=== PATIENT | female | born 1955 | race Caucasian/White ===

== ENCOUNTER 2017-12-08 09:18 | Outpatient (CLI) | payer MEDICARE, MEDICAID ==
--- NOTE | 2017-12-08 11:22 | Fluoroscopy Report ---
Modified barium swallow: Imaging is obtained in the lateral projection. Different consistencies of opaque material given to the patient by speech therapy. No significant penetration and no aspiration identified.
== END 2017-12-08 09:19 | disposition home or self-care (01) ==
LOC: PT 09:18
PROVIDERS: ATTEND Internal Medicine
DX: R13.12 Dysphagia, oropharyngeal phase (principal); G80.9 Cerebral palsy, unspecified; F41.9 Anxiety disorder, unspecified; F20.9 Schizophrenia, unspecified; Z87.01 Personal history of pneumonia (recurrent)
CPT/HCPCS: 74230; 92611; G8996; G8997; G8998

== ENCOUNTER 2017-12-11 05:33 | Inpatient (IN) | payer MEDICARE ==
--- NOTE | 2017-12-11 05:47 | Emergency Department Report ---
ED CPR HPI - General Stated Complaint: CARDIAC ARREST Time Seen by Provider: 12/11/17 05:42 Source: EMS Mode of arrival: Stretcher Limitations: Altered Mental Status - History of Present Illness Initial Comments: 62 yo female from [place] presents s/p cardiopulmonary arrest from [place]. Original call was for sob. Upon EMS arrival chest compressions were in progress. Pt intubated with 7.0 ET tube, pt had a narrow complex rhythm with signs of st elevation on rhythm strip. Weak pulse obtained prior to arrival with intermittent agonal respirations noted. glucose in the 240's. No IV access or IV meds prior to arrival. - Related Data Allergies Allergy/AdvReac Type Severity Reaction Status Date / Time grapefruit Allergy Unknown Verified 12/11/17 05:54 Influenza Virus Vaccines Allergy Unknown Verified 12/11/17 05:55 ED Review of Systems ROS: Stated complaint: CARDIAC ARREST Other details as noted in HPI Comment: Unobtainable due to pts medical conditions ED Physical Exam - General Limitations: Altered Mental Status, Physical Limitation General appearance: other (unresponsive) - Head Head exam: Present: normal inspection - Eye Eye exam: Present: other (pupils fixed and dialated) - ENT ENT exam: Present: other (orally intubated 7.0 ET tube 20 cm at lip) - Respiratory Respiratory exam: Present: other (apneic, intubated, equal breath sounds without breathsounds over the epigastrium) - Cardiovascular Cardiovascular Exam: Present: normal rhythm - GI/Abdominal GI/Abdominal exam: Present: soft, other (Peg tube noted). Absent: distended - Extremities Exam Extremities exam: Present: other (mottled, cyanotic, no spontaneous movement) - Back Exam Back exam: Present: normal inspection - Neurological Exam Neurological exam: Present: other (gcs = 3) - Psychiatric Psychiatric exam: Present: other (unresponive) - Skin Skin exam: Present: cyanosis ED Course - Reevaluation(s) Reevaluation #1: 12/11/17 06:12 Patient is the had a narrow complex rhythm. Patient's rhythm deteriorated to a bradycardic wide complex rhythm. Chest compressions initiated. During pulselessness patient went from PEA to V. tach. After multiple rounds of epi, sodium bicarbonate, and defibrillation a perfusing rhythm was obtained. See code sheet for details. 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 - Central Line Placement Right Femoral Consent Obtained: emergent situation Time Out Performed: Yes Patient Placed on Monitor/Pulse Ox: Yes Prep: mask, gown, gloves Central Line Prep: Chlorhexidine scrub, sterile drapes applied Ultrasound Used for Placement: No Bloods Obtained for Lab: Yes Central Line Position: good blood return, sutured in place with nyl Dressing Applied: Tegaderm Patient Tolerated Procedure: well Complications: none ED Medical Decision Making - EKG Data -: EKG Interpreted by Me EKG shows normal: sinus rhythm, axis (qrs 72), QRS complexes (98), ST-T waves ( large r wave with st depression v1-v4 suggestive post mi) Rate: tachycardia (113) - EKG Data When compared to previous EKG there are: previous EKG unavailable - Radiology Data Radiology results: report reviewed (cxr: pending) - Medical Decision Making Status post cardiac arrest with rearrest s/p arriival to the ED. Pulse obtained . Central line placed. Patient signed out to Dr. Ng with labs and chest x-ray pending. Patient would need ICU admission. - Differential Diagnosis PE, respiratory arrest, cardiac arrest, arrhythmia, ID, CVA Critical Care Time: Yes Critical care time in (mins) excluding proc time.: 30 Critical care attestation.: If time is entered above; I have spent that time in minutes in the direct care of this critically ill patient, excluding procedure time. ED Disposition Clinical Impression: Cardiopulmonary arrest Disposition: [id number] OP ADMIT IP TO THIS HOSP Is pt being admited?: Yes Condition: Stable Time of Disposition: 06:18 (s/o Dr Ng)
[2017-12-11] MEDS ORDERED: VASELINE LIP THERAPY TP PRN (06:09)
[2017-12-11] MEDS ORDERED: ARTIFICIAL TEARS OPHTH OINT OU PRN (06:09)
[2017-12-11] MEDS ORDERED: NACL 0.9% 1000 ML 1,000 ML IV ONE ×6 (06:14→11:47)
[2017-12-11] MEDS: LEVOPHED DRIP 4 MG/NS 250 ML 4 MG/250 ML BAG IV SCH ×3 (06:15→13:27)
[2017-12-11 06:27] LABS: Hematocrit 40.2 % (30.3-42.9); Hemoglobin 12.6 gm/dl (10.1-14.3); Mean Corpuscular HGB Conc 31 % (30-34); Mean Corpuscular Hemoglobin 31 pg (28-32); Mean Corpuscular Volume 99 fl (79-97); Platelet Count 104 K/mm3 (140-440); Red Blood Count 4.08 M/mm3 (3.65-5.03); Red Cell Distribution Width 16.4 % (13.2-15.2)
--- NOTE | 2017-12-11 06:36 | XRay Report ---
FINAL REPORT EXAM: XR CHEST 1V AP HISTORY: s/p cardiac arrest, ett placement TECHNIQUE: AP portable view(s) of the chest obtained. PRIORS: None. FINDINGS: Endotracheal tube terminates approximately 6 cm from the timbo. No mediastinal shift. Cardiac silhouette is not enlarged. No pneumothorax, effusion, or focal pulmonary opacity identified. No acute skeletal findings. IMPRESSION: Endotracheal tube terminates approximately 6 cm from the timbo. No pneumothorax or evident effusion.
[2017-12-11 06:39] LABS: INR 1.39 (0.87-1.13); Partial Thromboplastin Time 28.2 Sec. (24.2-36.6)
[2017-12-11 06:40] LABS: Calcium 6.6 mg/dL (8.4-10.2)
[2017-12-11 06:43] LABS: Alanine Aminotransferase 118 units/L (7-56); Albumin 1.3 g/dL (3.9-5)
[2017-12-11 06:44] LABS: Creatine Kinase MB 6.4 ng/mL (0.0-4.0)
[2017-12-11] MEDS ORDERED: D50W (25GM) Syringe IV ONE (06:46)
[2017-12-11] MEDS ORDERED: KIONEX PR ONE (06:46)
[2017-12-11] MEDS ORDERED: HumuLIN R IV ONE (06:46)
[2017-12-11] MEDS ORDERED: CALCIUM GLUCONATE 1,000 MG in NACL 0.9% 100 ML IV ONE (06:46)
[2017-12-11 06:47] LABS: Bilirubin,Direct < 0.2 mg/dL (0-0.2)
[2017-12-11] MEDS ORDERED: Vasostrict 20 UNIT in NACL 0.9% 100 ML IV SCH (07:00)
[2017-12-11] MEDS ORDERED: NACL 0.9% 500 ML IV SCH (07:00)
[2017-12-11] MEDS ORDERED: LEVAQUIN 750MG/150ML 750 MG/150 ML BAG IV ONE (08:08)
[2017-12-11] MEDS ORDERED: NEO-SYNEPHRINE 100 MG in NACL 0.9% 90 ML IV SCH (09:30)
--- NOTE | 2017-12-11 09:33 | Emergency Department Report ---
Blank Doc - Documentation Documentation: I was asked by my overnight colleague to follow the labs for this patient, take care of any abnormalities, and assist in getting the patient admitted to the critical care unit. The patient was found to have a 51,000 white blood cell count, hyperkalemia with potassium of 6, very elevated lactic acidosis, elevated LFTs and a troponin level that appears to be trending up along with the CK and CK-MB levels. Blood cultures sent and patient was started empirically on antibiotics. She was given some Kayexalate, insulin and glucose for the hyperkalemia. She has required a second pressor to be started and was given another IV fluid bolus. I put in a critical care consult for Dr. Langston and I spoke with Dr. Vigil about admission to the hospitalist service.
[2017-12-11] MEDS ORDERED: NACL 0.9% 1000 ML 2,000 ML IV ONE (09:44)
[2017-12-11] MEDS ORDERED: SODIUM BICARBONATE IV ONE ×2 (09:46→09:51)
[2017-12-11] MEDS ORDERED: VANCOMYCIN/NS 1 GM/250 ML 1 GM/250 ML BAG IV SCH ×2 (09:48→10:00)
[2017-12-11 09:50] LABS: Chol/HDL Ratio 10.1 %
[2017-12-11] MEDS ORDERED: ZOSYN/NS 3.375GM/50ML 3.375 GM/50 ML BAG IV SCH (10:00)
--- NOTE | 2017-12-11 10:00 | Consultation ---
History of Present Illness Consult date: 12/11/17 Requesting physician: BEBE PRINCE History of present illness: The pt is a 62 YO female half-way resident with a past medical history significant for cerebral palsy. She is previously unknown to our practice. Pt is intubated and nonresponsive on evaluation with no family at bedside and thus HPI is obtained per the chart and per primary RN. Pt presented from [place] s/p cardiopulmonary arrest from [place]. Original call was for SOB. Upon EMS arrival chest compressions were in progress. Pt intubated with 7.0 ET tube, pt had a narrow complex rhythm with signs of st elevation on rhythm strip. Weak pulse obtained prior to arrival with intermittent agonal respirations noted. Following arrival to ED, patient's rhythm deteriorated to a bradycardic wide complex rhythm. Chest compressions resumed. During pulselessness patient went from PEA to V. tach. After multiple rounds of epi, sodium bicarbonate, and defibrillation ROSC was obtained. Pt was initiated on levophed and vaso gtts. 12 -lead ECG shows ST with large r wave and st depression in v1-v4. Troponins 0.046 -> 0.027. WBC 51.1; lactic acid 16.8; Na 133; K+ 6.0; BUN/CR 83/2.3; BG 245; calcium 6.6. Past History Past Medical History: other (cerebral palsy ) Medications and Allergies Allergies Allergy/AdvReac Type Severity Reaction Status Date / Time grapefruit Allergy Unknown Verified 12/11/17 05:54 Influenza Virus Vaccines Allergy Unknown Verified 12/11/17 05:55 Home Medications Medication Instructions Recorded Confirmed Last Taken Type Acetaminophen [Tylenol] 650 mg PO Q6HR PRN 12/11/17 12/11/17 Unknown History Famotidine [Heartburn Prevention] 20 mg PO DAILY 12/11/17 12/11/17 Unknown History Trazodone HCl 150 mg PO QHS 12/11/17 12/11/17 Unknown History risperiDONE [RisperDAL] 0.25 mg PO BID 12/11/17 12/11/17 Unknown History Active Meds: Active Medications Hydrophilic Ointment (Vaseline Lip Therapy) 1 applic TP Q2HR PRN PRN Reason: Dry Lips Norepinephrine (Levophed Drip 4 Mg/Ns 250 Ml) 4 mg in 250 mls @ 7.5 mls/hr IV TITR JOVANI; Protocol Last Admin: 12/11/17 08:20 Dose: 30 mcg/min, 112.5 mls/hr Vasopressin 20 unit/ Sodium (Chloride) 101 mls @ 9.09 mls/hr IV TITR JOVANI; Protocol Last Admin: 12/11/17 07:29 Dose: 0.03 units/min, 9.09 mls/hr Phenylephrine HCl 100 mg/ (Sodium Chloride) 100 mls @ 3 mls/hr IV TITR JOVANI; Protocol Sodium Chloride (Nacl 0.9% 1000 Ml) 2,000 mls @ 999 mls/hr IV ONCE ONE Stop: 12/11/17 11:44 Piperacillin Sod/Tazobactam Sod (Zosyn/Ns 3.375gm/50ml) 3.375 gm in 50 mls @ 100 mls/hr IV Q8HR JOVANI Vancomycin HCl (Vancomycin/Ns 1 Gm/250 Ml) 1 gm in 250 mls @ 167.007 mls/hr IV ONCE JOVANI Multi-Ingred Cream/Lotion/Oil/Oint (Artificial Tears Ophth Oint) 1 applic OU Q4HR PRN PRN Reason: Dry Eye(s) Sodium Bicarbonate (Sodium Bicarbonate) 100 meq IV ONCE ONE Stop: 12/11/17 09:47 Sodium Chloride (Nacl 0.9% 500 Ml) 1 ml IV DIRECT JOVANI Review of Systems ROS unobtainable: due to endotracheal tube, due to mental status Physical Examination Vital Signs Pulse Resp 69 12 12/11/17 05:24 12/11/17 05:24 General appearance: other (intubated; unresponsive) Cardiac: Positive: Reg Rate and Rhythm, S1/S2 Lungs: Positive: Decreased Breath Sounds Neuro: Positive: Other (intubated; unresponsive) Skin: Negative: Rash, Wound Musculoskeletal: No Fluid Collection Extremities: Absent: edema Results 12/11/17 Unknown 12/11/17 Unknown Cardiac Enzymes 12/11/17 12/11/17 12/11/17 Range/Units 08:56 Unknown Unknown AST 180 H (5-40) units/L CK-MB (CK-2) 52.0 H 6.4 H (0.0-4.0) ng/mL Coagulation 12/11/17 Range/Units Unknown PT 17.9 H (12.2-14.9) Sec. INR 1.39 H (0.87-1.13) APTT 28.2 (24.2-36.6) Sec. Lipids 12/11/17 Range/Units 08:56 Triglycerides 224 H (2-149) mg/dL Cholesterol 101 (50-199) mg/dL HDL Cholesterol 10 L (40-59) mg/dL Cholesterol/HDL Ratio 10.10 % CBC 12/11/17 Range/Units Unknown WBC 51.1 H* (4.5-11.0) K/mm3 RBC 4.08 (3.65-5.03) M/mm3 Hgb 12.6 (10.1-14.3) gm/dl Hct 40.2 (30.3-42.9) % Plt Count 104 L (140-440) K/mm3 Comprehensive Metabolic Panel 12/11/17 12/11/17 Range/Units Unknown Unknown Sodium 133 L (137-145) mmol/L Potassium 6.0 H (3.6-5.0) mmol/L Chloride 89.0 L (98-107) mmol/L Carbon Dioxide 13 L (22-30) mmol/L BUN 83 H (7-17) mg/dL Creatinine 2.3 H (0.7-1.2) mg/dL Glucose 245 H (65-100) mg/dL Calcium 6.6 L (8.4-10.2) mg/dL Direct Bilirubin < 0.2 (0-0.2) mg/dL AST 180 H (5-40) units/L ALT 118 H (7-56) units/L Alkaline Phosphatase 109 (35-129) units/L Total Protein 3.1 L (6.3-8.2) g/dL Albumin 1.3 L (3.9-5) g/dL - Imaging and Cardiology Echo: pending EKG: report reviewed, image reviewed EKG interpretations - Telemetry EKG Rhythm: Sinus Rhythm - EKG Sinus rhythms and dysrhythmias: sinus tachycardia Repolarization changes or abnormalities: ST or T wave suggestive of ischemia Assessment and Plan Assessment: S/p cardiopulmonary arrest Acute respiratory failure - intubated AMS Abnormal ECG Minimally elevated troponins - trending downwards Leukocytosis Lactic acidosis MADELINE on ? CKD Hyperkalemia Hyponatremia Hypocalcemia H/o cerebral palsy Plan: Obtain echo. Cont serial ECGs. Cont to trend Marlon. Cont supportive management. Wean pressors as tolerated. Consider ischemic evaluation once medically stabilized. The patient has been seen in conjunction with Dr. Taylor who agrees with the assessment and plan of care.
[2017-12-11] MEDS ORDERED: ZOFRAN IV PRN (10:42)
[2017-12-11] MEDS ORDERED: TYLENOL PO PRN (10:42)
[2017-12-11] MEDS ORDERED: ZOSYN/NS 2.25 GM/50ML 2.25 GM/50 ML BAG IV SCH (11:00)
--- NOTE | 2017-12-11 11:36 | Consultation ---
History of Present Illness Consult date: 12/11/17 Requesting physician: ABBEY [place] Reason for consult: other (cardiac arrest and acute respiratory failure) History of present illness: 62 y/o lady from [facility], [facility] found in cardiac arrest at group home by EMS. Intubated and transitioned to ED. White count 51 thousand, hypothermic. Distended abdomen and unresponsive, no sedation. Past History Past Medical History: other (cerebral palsy ) Past Surgical History: Other (unable to obtain) Social history: other (unable to obtain) Family history: other (unable to obtain) Medications and Allergies Allergies Allergy/AdvReac Type Severity Reaction Status Date / Time grapefruit Allergy Unknown Verified 12/11/17 05:54 Influenza Virus Vaccines Allergy Unknown Verified 12/11/17 05:55 Home Medications Medication Instructions Recorded Confirmed Last Taken Type Acetaminophen [Tylenol] 650 mg PO Q6HR PRN 12/11/17 12/11/17 Unknown History Famotidine [Heartburn Prevention] 20 mg PO DAILY 12/11/17 12/11/17 Unknown History Trazodone HCl 150 mg PO QHS 12/11/17 12/11/17 Unknown History risperiDONE [RisperDAL] 0.25 mg PO BID 12/11/17 12/11/17 Unknown History Active Meds: Active Medications Acetaminophen (Tylenol) 650 mg PO Q4H PRN PRN Reason: Pain MILD(1-3)/Fever >100.5/ARCOS Heparin Sodium (Porcine) (Heparin) 5,000 unit SUB-Q Q8HR JOVANI Hydrophilic Ointment (Vaseline Lip Therapy) 1 applic TP Q2HR PRN PRN Reason: Dry Lips Norepinephrine (Levophed Drip 4 Mg/Ns 250 Ml) 4 mg in 250 mls @ 7.5 mls/hr IV TITR JOVANI; Protocol Last Admin: 12/11/17 08:20 Dose: 30 mcg/min, 112.5 mls/hr Vasopressin 20 unit/ Sodium (Chloride) 101 mls @ 9.09 mls/hr IV TITR JOVANI; Protocol Last Admin: 12/11/17 07:29 Dose: 0.03 units/min, 9.09 mls/hr Phenylephrine HCl 100 mg/ (Sodium Chloride) 100 mls @ 3 mls/hr IV TITR JOVANI; Protocol Sodium Chloride (Nacl 0.9% 1000 Ml) 2,000 mls @ 999 mls/hr IV ONCE ONE Stop: 12/11/17 11:44 Last Admin: 12/11/17 10:15 Dose: 999 mls/hr Vancomycin HCl (Vancomycin/Ns 1 Gm/250 Ml) 1 gm in 250 mls @ 167.007 mls/hr IV ONCE JOVANI Piperacillin Sod/Tazobactam Sod (Zosyn/Ns 2.25 Gm/50ml) 2.25 gm in 50 mls @ 100 mls/hr IV Q6H JOVANI Multi-Ingred Cream/Lotion/Oil/Oint (Artificial Tears Ophth Oint) 1 applic OU Q4HR PRN PRN Reason: Dry Eye(s) Ondansetron HCl (Zofran) 4 mg IV Q8H PRN PRN Reason: Nausea And Vomiting Sodium Chloride (Nacl 0.9% 500 Ml) 1 ml IV DIRECT JOVANI Review of Systems ROS unobtainable: due to endotracheal tube, due to mental status Physical Examination Vital signs: Vital Signs Pulse Resp 69 12 12/11/17 05:24 12/11/17 05:24 General appearance: comatose Eyes: non-icteric ENT: other (orally intubated and critically ill on vent. Dark secretions coming from nose and mouth) Effort: normal Ascultation: Bilateral: clear Cardiovascular: other (sinus tachycardia) Gastrointestinal: other (distended, very very very faint bowel sounds if any) Integumentary: normal Extremities: pink and warm unable to assess other (unable to assess) Results - Laboratory Findings CBC and BMP: 12/11/17 Unknown 12/11/17 Unknown ABG POC ABG pH 7.238 (7.35-7.45) L 12/11/17 07:20 POC ABG pCO2 28.6 (35-45) L 12/11/17 07:20 POC ABG pO2 405 (80-105) H 12/11/17 07:20 POC ABG HCO3 12.2 12/11/17 07:20 POC ABG Total CO2 13 12/11/17 07:20 POC ABG O2 Sat 100 12/11/17 07:20 PT/INR, D-dimer PT 17.9 Sec. (12.2-14.9) H 12/11/17 Unknown INR 1.39 (0.87-1.13) H 12/11/17 Unknown Abnormal lab findings: Abnormal Labs 12/11/17 12/11/17 12/11/17 07:16 07:20 07:23 WBC MCV RDW Plt Count PT INR POC ABG pH 7.238 L POC ABG pCO2 28.6 L POC ABG pO2 405 H Sodium Potassium Chloride Carbon Dioxide BUN Creatinine Glucose POC Glucose 182 H Lactic Acid 15.10 H* Calcium AST ALT Total Creatine Kinase CK-MB (CK-2) CK-MB (CK-2) Rel Index Troponin T Total Protein Albumin Triglycerides LDL Cholesterol Direct HDL Cholesterol 12/11/17 12/11/17 12/11/17 08:25 08:56 Unknown WBC MCV RDW Plt Count PT INR POC ABG pH POC ABG pCO2 POC ABG pO2 Sodium Potassium Chloride Carbon Dioxide BUN Creatinine Glucose POC Glucose Lactic Acid 10.20 H* 16.80 H* Calcium AST ALT Total Creatine Kinase 1152 H CK-MB (CK-2) 52.0 H CK-MB (CK-2) Rel Index 4.5 H Troponin T 0.046 H D Total Protein Albumin Triglycerides 224 H LDL Cholesterol Direct 30 L HDL Cholesterol 10 L 12/11/17 12/11/17 12/11/17 Unknown Unknown Unknown WBC 51.1 H* MCV 99 H RDW 16.4 H Plt Count 104 L PT 17.9 H INR 1.39 H POC ABG pH POC ABG pCO2 POC ABG pO2 Sodium Potassium Chloride Carbon Dioxide BUN Creatinine Glucose POC Glucose Lactic Acid Calcium AST ALT Total Creatine Kinase 151 H CK-MB (CK-2) 6.4 H CK-MB (CK-2) Rel Index 4.2 H Troponin T Total Protein Albumin Triglycerides LDL Cholesterol Direct HDL Cholesterol 12/11/17 12/11/17 Unknown Unknown WBC MCV RDW Plt Count PT INR POC ABG pH POC ABG pCO2 POC ABG pO2 Sodium 133 L Potassium 6.0 H Chloride 89.0 L Carbon Dioxide 13 L BUN 83 H Creatinine 2.3 H Glucose 245 H POC Glucose Lactic Acid Calcium 6.6 L AST 180 H ALT 118 H Total Creatine Kinase CK-MB (CK-2) CK-MB (CK-2) Rel Index Troponin T Total Protein 3.1 L Albumin 1.3 L Triglycerides LDL Cholesterol Direct HDL Cholesterol - Diagnostic Findings Chest x-ray: image reviewed (clear) Assessment and Plan 62 y/o female with acute respiratory failure secondary to cardiac arrest, out of hospital. Currently on 3 pressors, unresponsive on no sedation and acute respiratory failure. Patient with multisystem organ failure. Unknown what baseline mental state and overall health conditions were. Overall prognosis is extremely guarded to poor. This is what we will do. 1. Bicarb administered x2 2. Agree with adding third pressor as patient is a full code 3. Added Vancomycin and Zosyn. With elevated white count will also add Flagyl as well 4. Continue volume resuscitation with normal saline 5. Repeat ABG to assess pH later today 6. Agree with OG tube to suction, has firm abdomen with what appears to be dilated loops of bowel. 7. Overall prognosis is guarded to poor. CCT 31 minutes.
[2017-12-11 13:12] LABS: Creatine Kinase MB 72.9 ng/mL (0.0-4.0)
[2017-12-11] MEDS ORDERED: FLAGYL 500 MG/100 ML 500 MG/100 ML BAG IV SCH (14:00)
[2017-12-11] MEDS ORDERED: HEPARIN SUB-Q SCH (14:00)
--- NOTE | 2017-12-11 16:03 | History and Physical Report ---
History of Present Illness Date of admission: 12/11/17 10:43 Past History Past Medical History: other (cerebral palsy ) Past Surgical History: Other (unable to obtain) Social history: other (unable to obtain) Family history: other (unable to obtain) Medications and Allergies Allergies Allergy/AdvReac Type Severity Reaction Status Date / Time grapefruit Allergy Unknown Verified 12/11/17 05:54 Influenza Virus Vaccines Allergy Unknown Verified 12/11/17 05:55 Home Medications Medication Instructions Recorded Confirmed Last Taken Type Acetaminophen [Tylenol] 650 mg PO Q6HR PRN 12/11/17 12/11/17 Unknown History Famotidine [Heartburn Prevention] 20 mg PO DAILY 12/11/17 12/11/17 Unknown History Trazodone HCl 150 mg PO QHS 12/11/17 12/11/17 Unknown History risperiDONE [RisperDAL] 0.25 mg PO BID 12/11/17 12/11/17 Unknown History Active Meds: Active Medications Acetaminophen (Tylenol) 650 mg PO Q4H PRN PRN Reason: Pain MILD(1-3)/Fever >100.5/ARCOS Heparin Sodium (Porcine) (Heparin) 5,000 unit SUB-Q Q8HR JOVANI Hydrophilic Ointment (Vaseline Lip Therapy) 1 applic TP Q2HR PRN PRN Reason: Dry Lips Norepinephrine (Levophed Drip 4 Mg/Ns 250 Ml) 4 mg in 250 mls @ 7.5 mls/hr IV TITR JOVANI; Protocol Last Admin: 12/11/17 13:27 Dose: 30 mcg/min, 112.5 mls/hr Vasopressin 20 unit/ Sodium (Chloride) 101 mls @ 9.09 mls/hr IV TITR JOVANI; Protocol Last Admin: 12/11/17 07:29 Dose: 0.03 units/min, 9.09 mls/hr Phenylephrine HCl 100 mg/ (Sodium Chloride) 100 mls @ 3 mls/hr IV TITR JOVANI; Protocol Last Titration: 12/11/17 15:29 Dose: 100 mcg/min, 6 mls/hr Vancomycin HCl (Vancomycin/Ns 1 Gm/250 Ml) 1 gm in 250 mls @ 167.007 mls/hr IV ONCE JOVANI Last Admin: 12/11/17 12:08 Dose: 167.007 mls/hr Piperacillin Sod/Tazobactam Sod (Zosyn/Ns 2.25 Gm/50ml) 2.25 gm in 50 mls @ 100 mls/hr IV Q6H [facility] Last Admin: 12/11/17 11:07 Dose: 100 mls/hr Metronidazole (Flagyl 500 Mg/100 Ml) 500 mg in 100 mls @ 100 mls/hr IV Q8HR [facility] Multi-Ingred Cream/Lotion/Oil/Oint (Artificial Tears Ophth Oint) 1 applic OU Q4HR PRN PRN Reason: Dry Eye(s) Ondansetron HCl (Zofran) 4 mg IV Q8H PRN PRN Reason: Nausea And Vomiting Sodium Chloride (Nacl 0.9% 500 Ml) 1 ml IV DIRECT JOVANI Exam - Constitutional Vitals: Temp Pulse Resp BP Pulse Ox 97.7 F 123 H 38 H 124/20 98 12/11/17 15:06 12/11/17 14:13 12/11/17 13:46 12/11/17 14:13 12/11/17 14:13 Results - Labs CBC & Chem 7: 12/11/17 Unknown 12/11/17 Unknown Labs: Laboratory Last Values WBC 51.1 K/mm3 (4.5-11.0) H* 12/11/17 Unknown RBC 4.08 M/mm3 (3.65-5.03) 12/11/17 Unknown Hgb 12.6 gm/dl (10.1-14.3) 12/11/17 Unknown Hct 40.2 % (30.3-42.9) 12/11/17 Unknown MCV 99 fl (79-97) H 12/11/17 Unknown MCH 31 pg (28-32) 12/11/17 Unknown MCHC 31 % (30-34) 12/11/17 Unknown RDW 16.4 % (13.2-15.2) H 12/11/17 Unknown Plt Count 104 K/mm3 (140-440) L 12/11/17 Unknown PT 17.9 Sec. (12.2-14.9) H 12/11/17 Unknown INR 1.39 (0.87-1.13) H 12/11/17 Unknown APTT 28.2 Sec. (24.2-36.6) 12/11/17 Unknown POC ABG pH 7.238 (7.35-7.45) L 12/11/17 07:20 POC ABG pCO2 28.6 (35-45) L 12/11/17 07:20 POC ABG pO2 405 (80-105) H 12/11/17 07:20 POC ABG HCO3 12.2 12/11/17 07:20 POC ABG Total CO2 13 12/11/17 07:20 POC ABG O2 Sat 100 12/11/17 07:20 POC ABG Base Excess -15 12/11/17 07:20 FiO2 100 % 12/11/17 07:20 Sodium 133 mmol/L (137-145) L 12/11/17 Unknown Potassium 6.0 mmol/L (3.6-5.0) H 12/11/17 Unknown Chloride 89.0 mmol/L (98-107) L 12/11/17 Unknown Carbon Dioxide 13 mmol/L (22-30) L 12/11/17 Unknown Anion Gap 37 mmol/L 12/11/17 Unknown BUN 83 mg/dL (7-17) H 12/11/17 Unknown Creatinine 2.3 mg/dL (0.7-1.2) H 12/11/17 Unknown Estimated GFR 22 ml/min 12/11/17 Unknown BUN/Creatinine Ratio 36 % 12/11/17 Unknown Glucose 245 mg/dL (65-100) H 12/11/17 Unknown POC Glucose 182 (70-105) H 12/11/17 07:23 Lactic Acid 16.80 mmol/L (0.7-2.0) H* 12/11/17 Unknown Calcium 6.6 mg/dL (8.4-10.2) L 12/11/17 Unknown Total Bilirubin 0.20 mg/dL (0.1-1.2) 12/11/17 Unknown Direct Bilirubin < 0.2 mg/dL (0-0.2) 12/11/17 Unknown AST 180 units/L (5-40) H 12/11/17 Unknown ALT 118 units/L (7-56) H 12/11/17 Unknown Alkaline Phosphatase 109 units/L (35-129) 12/11/17 Unknown Total Creatine Kinase 151 units/L (30-135) H 12/11/17 Unknown CK-MB (CK-2) 6.4 ng/mL (0.0-4.0) H 12/11/17 Unknown CK-MB (CK-2) Rel Index 4.2 (0-4) H 12/11/17 Unknown Troponin T 0.027 ng/mL (0.00-0.029) 12/11/17 Unknown Total Protein 3.1 g/dL (6.3-8.2) L 12/11/17 Unknown Albumin 1.3 g/dL (3.9-5) L 12/11/17 Unknown Albumin/Globulin Ratio 0.7 % 12/11/17 Unknown Triglycerides 224 mg/dL (2-149) H 12/11/17 08:56 Cholesterol 101 mg/dL (50-199) 12/11/17 08:56 LDL Cholesterol Direct 30 mg/dL (50-130) L 12/11/17 08:56 HDL Cholesterol 10 mg/dL (40-59) L 12/11/17 08:56 Cholesterol/HDL Ratio 10.10 % 12/11/17 08:56 Assessment and Plan Assessment and plan: 62 yo female from skilled nursing presents s/p cardiopulmonary arrest from [place]. Original call was for sob. Upon EMS arrival chest compressions were in progress. Pt intubated with 7.0 ET tube, pt had a narrow complex rhythm with signs of st elevation on rhythm strip. Weak pulse obtained prior to arrival with intermittent agonal respirations noted. glucose in the 240's. No IV access or IV meds prior to arrival. Cardiac arrest sp CPR, continue on pressors cardiogenic shock continue pressors STEMI acute respiratory failure on MV toxic metabolic encephalopathy ?anoxic encephalopathy SIRS MADELINE Hyperkalemia was medically rx, repeat K level
[2017-12-11] MEDS ORDERED: NACL 0.9% 1000 ML 1,000 ML ONE (17:12)
[2017-12-11] MEDS ORDERED: NACL 0.9% 1000 ML 3,000 ML IV ONE (17:40)
--- NOTE | 2017-12-11 20:52 | Death Note ---
Note Date of : 12/11/17 Time of : 19:47 Time Pronounced: 19:50 - Preliminary Cause of (problem) (1) STEMI (ST elevation myocardial infarction) Preliminary cause of (2) Cardiopulmonary arrest Preliminary cause of
[2017-12-11 21:39] VITALS: BP 161/136
--- NOTE | 2017-12-12 08:22 | Event Note ---
Date: 12/12/17 Consult placed yesterday but I was not notified. Saw Patient on my list this am but already so I did not provide any medical care to Patient
--- NOTE | 2017-12-12 13:15 | Death Summary ---
Summary - Providers Consults: 12/11/17 06:09 Consult to Dietitian/Nutrition [CONS] Routine Physician Instructions: Reason For Exam: Reason for Consult: Write/Manage Tube Feeding 12/11/17 08:34 Consult to Physician [CONS] Routine Comment: Consulting Provider: ADRYAN CRESPO Physician Instructions: Reason For Exam: Critical Care 12/11/17 15:58 Consult to Physician [CONS] Routine Comment: Consulting Provider: MELANY CHRISTIANSON Physician Instructions: Reason For Exam: giulia Attending: ABBEY [place] MD - summary Date of admission: 12/11/17 10:43 Date of : 12/11/17
== END 2017-12-12 20:42 | DRG 208 ==
LOC: ED 05:33 → CC1 10:43
PROVIDERS: ADMIT Internal Medicine; ATTEND Internal Medicine
PROC: 5A1935Z Respiratory Ventilation, Less than 24 Consecutive Hours (ICD-10-PCS; principal; 2017-12-11)
PROC: 0BH17EZ Insertion of Endotracheal Airway into Trachea, Via Natural or Artificial Opening (ICD-10-PCS; 2017-12-11)
PROC: 06HY33Z Insertion of Infusion Device into Lower Vein, Percutaneous Approach (ICD-10-PCS; 2017-12-11)
PROC: 4A033R1 Measurement of Arterial Saturation, Peripheral, Percutaneous Approach (ICD-10-PCS; 2017-12-11)
DX: J96.00 Acute respiratory failure, unspecified whether with hypoxia or hypercapnia (principal); I21.3 ST elevation (STEMI) myocardial infarction of unspecified site; G92 Toxic encephalopathy; R65.10 Systemic inflammatory response syndrome (SIRS) of non-infectious origin without acute organ dysfunction; N17.9 Acute kidney failure, unspecified; E87.2 Acidosis; E87.1 Hypo-osmolality and hyponatremia; I46.9 Cardiac arrest, cause unspecified; E87.5 Hyperkalemia; R41.82 Altered mental status, unspecified; R94.31 Abnormal electrocardiogram [ECG] [EKG]; D72.829 Elevated white blood cell count, unspecified; E83.51 Hypocalcemia; G80.9 Cerebral palsy, unspecified; Z79.899 Other long term (current) drug therapy
CPT/HCPCS: 36415; 71045; 80048; 80061; 80074; 82140; 82550; 82553; 82803; 82962; 84132; 84484; 85027; 85610; 85730; 87040; 87070; 87205; 93005; 93010; 93306; 94002; J0610; J1644; J1815; J1956; J2370; J2543; J3370; J7030